=== PATIENT | female | born 1960 | race Native Hawaiian/Other Pacific Islander ===

== ENCOUNTER 2016-06-03 13:11 | Outpatient (CLI) | payer OTHER ==
[2016-06-03 13:30] LABS: PLATELET COUNT 362 K/uL (152-353)
[2016-06-03 14:13] LABS: POTASSIUM 4.5 mmol/L (3.6-5.2); SODIUM 138 mmol/L (136-145)
== END 2016-06-03 19:45 | disposition home or self-care (01) ==
LOC: LAB 13:11
PROVIDERS: Nurse Practitioner Family
DX: E11.9 Type 2 diabetes mellitus without complications (principal); I10 Essential (primary) hypertension; E78.00 Pure hypercholesterolemia, unspecified
CPT/HCPCS: 80053; 80061; 83036; 84439; 84443; 85027

== ENCOUNTER 2017-10-19 08:04 | Outpatient (CLI) | payer OTHER | END 2017-10-19 19:31 | disposition home or self-care (01) | LOC: CT 08:04 | DX: R10.84 Generalized abdominal pain (principal); R19.09 Other intra-abdominal and pelvic swelling, mass and lump | CPT/HCPCS: 36415; 82565; 84520; Q9963 ==

== ENCOUNTER 2017-12-03 09:38 | Outpatient (CLI) | payer OTHER | END 2017-12-03 23:19 | disposition home or self-care (01) | LOC: US 09:38 | DX: R22.2 Localized swelling, mass and lump, trunk (principal) ==

== ENCOUNTER 2018-12-27 08:59 | Outpatient (CLI) | payer OTHER | END 2018-12-27 20:31 | disposition home or self-care (01) | LOC: CT 08:59 | DX: R10.812 Left upper quadrant abdominal tenderness (principal); R11.0 Nausea | CPT/HCPCS: 36415; 82565; 84520; Q9963 ==

== ENCOUNTER 2019-01-28 07:53 | Outpatient (CLI) | payer OTHER | END 2019-01-28 22:10 | disposition home or self-care (01) | LOC: NM 07:53 | DX: R11.0 Nausea (principal) | CPT/HCPCS: A9541 ==

== ENCOUNTER 2019-02-05 13:01 | Outpatient (CLI) | payer OTHER | END 2019-02-05 13:02 | disposition short-term general hospital (02) | LOC: AMB 13:01 | DX: R51 Headache (principal); S51.011A Laceration without foreign body of right elbow, initial encounter; V49.50XA Passenger injured in collision with unspecified motor vehicles in traffic accident, initial encounter; Y92.413 State road as the place of occurrence of the external cause | CPT/HCPCS: A0425; A0427 ==

== ENCOUNTER 2019-02-05 13:06 | Emergency (ER) | payer OTHER ==
[~2019-02-05] VITALS: Ht 157.5 cm; Wt 89.8 kg
[2019-02-05 14:50] VITALS: BP 158/67; TEMP 98
== END 2019-02-05 14:50 | disposition home or self-care (01) ==
LOC: ED 13:06
DX: S09.8XXA Other specified injuries of head, initial encounter (principal); S50.01XA Contusion of right elbow, initial encounter; V49.50XA Passenger injured in collision with unspecified motor vehicles in traffic accident, initial encounter; Y92.89 Other specified places as the place of occurrence of the external cause
CPT/HCPCS: 99283

== ENCOUNTER 2019-06-05 02:10 | Emergency (ER) | payer OTHER ==
[~2019-06-05] VITALS: Ht 157.5 cm; Wt 89.8 kg
[2019-06-05] MEDS ORDERED: TRAZODONE HYDR100 MG PO (03:34)
[2019-06-05] MEDS ORDERED: LISI20TA11 PO (03:34)
[2019-06-05] MEDS ORDERED: HYDR5TAB9 PO (03:34)
[2019-06-05] MEDS ORDERED: JANUVIA100 MG PO (03:35)
[2019-06-05] MEDS ORDERED: GLIM2TAB PO (03:35)
[2019-06-05] MEDS ORDERED: PRAVACHOL20 MG PO (03:35)
[2019-06-05] MEDS ORDERED: MOBIC7.5 M1 PO (03:36)
[2019-06-05] MEDS ORDERED: LEVO0.0529 PO (03:36)
[2019-06-05] MEDS ORDERED: LANTUS100 UNIT/M SC (03:36)
[2019-06-05] MEDS ORDERED: ALPR0.5T24 PO (03:37)
[2019-06-05 03:48] LABS: PLATELET COUNT 321 K/uL (152-353)
[2019-06-05 03:55] LABS: POTASSIUM 3.6 mmol/L (3.6-5.2)
[2019-06-05 06:05] VITALS: BP 188/886; TEMP 98
== END 2019-06-05 06:05 | disposition home or self-care (01) ==
LOC: ED 02:10
PROVIDERS: Emergency Medicine
DX: E11.65 Type 2 diabetes mellitus with hyperglycemia (principal); Z79.4 Long term (current) use of insulin
CPT/HCPCS: 36415; 80053; 81000; 82962; 85007; 85027; 96360; 99284